=== PATIENT | male | born 1970 | race Two or more races ===

== ENCOUNTER 2018-03-06 14:48 | Emergency (ER) | payer MEDICAID ==
[~2018-03-06] VITALS: Ht 177.8 cm; Wt 100.0 kg
[~2018-03-06 14:48] MED LIST: ASPI-1160 PO; HYDR12.529 PO; LISI10TA5 PO; SIMV10TA6 PO
[2018-03-06] MEDS ORDERED: ONDANSETRON HCL 4MG/2ML VIAL IV STA (15:29)
[2018-03-06] MEDS ORDERED: ASPIRIN 81MG TABLET PO STA (15:29)
[2018-03-06] MEDS ORDERED: FAMOTIDINE 20MG/2ML VIAL IV ONE (15:30)
[2018-03-06] MEDS ORDERED: MAGNESIUM/ALUMINUM HYDROXIDE/SIMETHICONE 30ML UDC PO ONE (15:30)
[2018-03-06 15:34] LABS: CHLORIDE 101 mEq/L (98-107); HEMATOCRIT. 42.2 % (42.0-52.0); HEMOGLOBIN. 14.1 g/dL (14.0-18.0); MEAN CORPUSCULAR HEMOGLOBIN 29.7 pg (28.0-32.0); MEAN CORPUSCULAR VOLUME 88.9 fL (80.0-94.0); MEAN PLATELET VOLUME 7.8 fl (7.4-10.4); PLATELET 191 x1000/uL (130-400); RED BLOOD CELL COUNT 4.75 mill/uL (4.7-6.1); RED CELL DISTRIBUTION WIDTH 14.2 % (11.6-14.6)
[2018-03-06 15:35] LABS: INR 1.1; PARTIAL THROMBOPLASTIN TIME 27.8 sec (23.4-31.0)
[2018-03-06 17:55] LABS: ATYPICAL LYMPHOCYTES 2; PLATELET ESTIMATE NORMAL
[2018-03-06] MEDS ORDERED: KETOROLAC 30MG/ML VIAL IV ONE (19:45)
[2018-03-06 19:46] VITALS: BP 120/75
== END 2018-03-06 20:20 | disposition home or self-care (01) ==
LOC: ER 15:50
DX: K21.9 Gastro-esophageal reflux disease without esophagitis (principal); M62.82 Rhabdomyolysis; E78.00 Pure hypercholesterolemia, unspecified; E11.9 Type 2 diabetes mellitus without complications; I10 Essential (primary) hypertension; Z79.82 Long term (current) use of aspirin; Z90.89 Acquired absence of other organs
CPT/HCPCS: 36415; 71045; 80053; 82550; 83690; 83880; 84443; 84484; 85025; 85379; 85610; 85730; 93005; 96374; 96375; 99285; J2405; J3490; P9612; Z7610

== ENCOUNTER 2018-04-19 09:35 | Emergency (ER) | payer MEDICAID, OTHER ==
[~2018-04-19] VITALS: Ht 172.7 cm; Wt 100.0 kg
[2018-04-19] MEDS ORDERED: KETOROLAC 60MG/2ML VIAL IM ONE (11:15)
[2018-04-19 11:36] VITALS: BP 118/76
== END 2018-04-19 12:41 | disposition home or self-care (01) ==
LOC: ER 11:55
DX: S46.811A Strain of other muscles, fascia and tendons at shoulder and upper arm level, right arm, initial encounter (principal); E11.9 Type 2 diabetes mellitus without complications; E78.00 Pure hypercholesterolemia, unspecified; I10 Essential (primary) hypertension; Z90.89 Acquired absence of other organs; Z79.82 Long term (current) use of aspirin; X58.XXXA Exposure to other specified factors, initial encounter; Y93.89 Activity, other specified; Y92.89 Other specified places as the place of occurrence of the external cause; Y99.8 Other external cause status
CPT/HCPCS: 96372; 99283; J1885

== ENCOUNTER 2018-09-30 13:43 | Emergency (ER) | payer OTHER ==
[~2018-09-30] VITALS: Ht 177.8 cm; Wt 100.0 kg
[2018-09-30] MEDS ORDERED: KETOROLAC 60MG/2ML VIAL IM ONE (17:30)
[2018-09-30 17:37] VITALS: BP 142/95
== END 2018-09-30 19:09 | disposition home or self-care (01) ==
LOC: ER 13:43
DX: M25.562 Pain in left knee (principal); R20.0 Anesthesia of skin; E78.00 Pure hypercholesterolemia, unspecified; E11.9 Type 2 diabetes mellitus without complications; I10 Essential (primary) hypertension; Z90.89 Acquired absence of other organs; Z79.899 Other long term (current) drug therapy
CPT/HCPCS: 73560; 96372; 99283; J1885; L1830

== ENCOUNTER 2022-03-22 18:29 | Emergency (ER) | payer MEDICAID, OTHER ==
[~2022-03-22] VITALS: Ht 177.8 cm; Wt 98.4 kg
[~2022-03-22 18:29] MED LIST changes: +LISI10TA26 PO; -LISI10TA5 PO; -SIMV10TA6 PO; +SIMV10TA97 PO
[2022-03-22 19:46] VITALS: BP 128/87
== END 2022-03-23 02:06 | disposition left against medical advice (07) ==
LOC: ER 18:29
DX: Z53.21 Procedure and treatment not carried out due to patient leaving prior to being seen by health care provider (principal)